=== PATIENT | male | born 1945 | race Caucasian/White ===

== ENCOUNTER 2017-03-30 21:17 | Inpatient (IN) | payer MEDICARE, OTHER ==
[~2017-03-30] VITALS: Ht 175.3 cm; Wt 85.3 kg
[2017-03-30] MEDS ORDERED: ASPI81TA31 PO ×2 (21:40)
[2017-03-30] MEDS ORDERED: ATOR40TA PO (21:40)
[2017-03-30] MEDS ORDERED: LISI-603 PO (21:40)
[2017-03-30] MEDS ORDERED: AMLO5TAB2 PO (21:40)
[2017-03-30] MEDS ORDERED: OMEP20TA5 PO (21:40)
[2017-03-30] MEDS ORDERED: ESCI10TA55 PO (21:40)
[2017-03-30] MEDS ORDERED: CLOP75TA33 PO (21:40)
[2017-03-30] MEDS ORDERED: Z GUARD REMEDY PASTE 57 GM TUBE TOP PRN (21:45)
[2017-03-31 03:57] VITALS: BP 145/86
[2017-03-31 07:48] LABS: EOSINOPHILS # (AUTO) 0.2 K/uL (0.0-0.7); MONOCYTES % (AUTO) 7.4 % (0.0-11.0); NEUTROPHILS # (AUTO) 5.1 K/UL (1.8-8.9)
--- NOTE | 2017-03-31 08:00 | NUR ---
Received patient from shift production supervisor, awake in bed, alert, verbally responsive, coherent, afebrile, not in any form of distress. Environmental safety check done. Assisted to his needs. Call light placed within reach. Reminded to use call light for assistance. Spoke to Yareli to reconcile meds and per MD continue all home meds. Order carried out.
[2017-03-31 08:05] LABS: BASOPHILS % (AUTO) 0.5 % (0.0-2.0); EOSINOPHILS % (AUTO) 2.4 % (0.0-7.0); HEMOGLOBIN 14.9 G/DL (14.0-18.0); LYMPHOCYTES # (AUTO) 1.4 K/UL (0.8-4.8); LYMPHOCYTES % (AUTO) 19.8 % (20.5-51.5); MEAN CORPUSCULAR HEMOGLOBIN 32.4 UUG (27.0-31.0); MEAN CORPUSCULAR HGB CONC 35 g/dL (32.0-37.0); MEAN CORPUSCULAR VOLUME 93.6 FL (82.0-92.0); MONOCYTES # (AUTO) 0.5 K/UL (0.1-1.30); NEUTROPHILS % (AUTO) 69.9 % (38.5-71.5); PLATELET COUNT (AUTO) 198 K/UL (150-450); RED BLOOD CELL COUNT(AUTO) 4.59 MIL/UL (4.7-6.1); WHITE BLOOD COUNT (AUTO) 7.2 K/UL (4.0-11.2)
[2017-03-31 08:28] LABS: MAGNESIUM 2.1 mg/dL (1.8-2.4); PHOSPHOROUS 3.6 mg/dL (2.5-4.9); POTASSIUM 4.2 mmol/L (3.5-5.1)
[2017-03-31 08:49] VITALS: BP 114/62
[2017-03-31] MEDS: ASPIRIN 81 MG TAB.CHEW PO SCH (09:56)
[2017-03-31] MEDS: ESCITALOPRAM OXALATE 10 MG TABLET PO SCH (09:57)
[2017-03-31] MEDS: AMLODIPINE 5 MG TABLET PO SCH (09:59)
[2017-03-31] MEDS: CLOPIDOGREL 75 MG TABLET PO SCH (09:59)
--- NOTE | 2017-03-31 20:00 | NUR ---
RECEIVED PATIENT AWAKE IN BED. A/O X4. DENIES ANY PAIN OR DISCOMFORT. NO RESP. DISTRESS NOTED. VS WNL. CALL LIGHT IN REACH. ALL NEEDS ATTENDED. WILL CONTINUE TO MONITOR AND ASSESS.
[2017-03-31 20:22] VITALS: BP 144/84
[2017-03-31] MEDS: ATORVASTATIN 40 MG TABLET PO SCH (20:49)
--- NOTE | 2017-04-01 06:08 | NUR ---
PATIENT AWAKE IN BED, WATCHING TV. SLEPT WELL. DENIES ANY PAIN OR DISCOMFORT. CALL LIGHT IN REACH. ALL NEEDS ATTENDED. WILL CONTINUE TO MONITOR.
[2017-04-01] MEDS: PANTOPRAZOLE SODIUM 40 MG TABLET.DR PO SCH (06:36)
--- NOTE | 2017-04-01 07:36 | NUR ---
Received patient awake up on his bed, alert, verbally responsive, not in any form of acute distress. He denies any pain or discomfort at this time. Attended to his needs. Call light placed within reach.
[2017-04-01] MEDS: ASPIRIN 81 MG TAB.CHEW PO SCH (08:53)
[2017-04-01] MEDS: LISINOPRIL 20 MG TABLET PO SCH (08:53)
[2017-04-01] MEDS: CLOPIDOGREL 75 MG TABLET PO SCH (08:53)
[2017-04-01] MEDS: AMLODIPINE 5 MG TABLET PO SCH (08:53)
[2017-04-01] MEDS: ESCITALOPRAM OXALATE 10 MG TABLET PO SCH (08:54)
[2017-04-01 09:30] VITALS: BP 131/76
--- NOTE | 2017-04-01 18:02 | NUR ---
Patient participated with PT and OT as scheduled today and tolerated well. He denies any pain or discomfort at this time.
--- NOTE | 2017-04-01 19:55 | NUR ---
patient noted laying in bed ,report received from Amy Love patient is stable
[2017-04-01 20:28] VITALS: BP 115/67
[2017-04-01] MEDS: ATORVASTATIN 40 MG TABLET PO SCH (21:40)
--- NOTE | 2017-04-01 22:40 | NUR ---
RECEIVED PATIENT LAYING IN BED COMFORTABLY. NO ACUTE DISTRESS NOTED. SAFETY INITIATED. CALL LIGHT WITHIN REACH.
[2017-04-02] MEDS: PANTOPRAZOLE SODIUM 40 MG TABLET.DR PO SCH (06:18)
--- NOTE | 2017-04-02 06:31 | NUR ---
NO CHANGES T/O THE NIGHT. SAFETY AND COMFORT MEASURES MAINTAINED T/O SHIFT. CALL LIGHT WITHIN REACH.
[2017-04-02 07:30] VITALS: BP 120/66
--- NOTE | 2017-04-02 08:04 | NUR ---
Patient received from retail shift leader nurse, report given. Patient in stable condition, no signs of acute distress noted, no verbalized needs at this time. VS WNL, no complaints of pain. Safety and fall precautions maintained. Call light within reach.
[2017-04-02] MEDS: ASPIRIN 81 MG TAB.CHEW PO SCH (08:20)
[2017-04-02] MEDS: LISINOPRIL 20 MG TABLET PO SCH (08:20)
[2017-04-02] MEDS: ESCITALOPRAM OXALATE 10 MG TABLET PO SCH (08:20)
[2017-04-02] MEDS: AMLODIPINE 5 MG TABLET PO SCH (08:20)
[2017-04-02] MEDS: CLOPIDOGREL 75 MG TABLET PO SCH (08:20)
[2017-04-02 20:00] VITALS: BP 122/73
[2017-04-02] MEDS: ATORVASTATIN 40 MG TABLET PO SCH (20:39)
[2017-04-03] MEDS: PANTOPRAZOLE SODIUM 40 MG TABLET.DR PO SCH (06:08)
--- NOTE | 2017-04-03 06:41 | NUR ---
PATIENT ASLEEP IN BED. EASILY AROUSABLE. SLEPT WELL THROUGHOUT THE NIGHT. CALL LIGHT IN REACH. ALL NEEDS ATTENDED. WILL CONTINUE TO MONITOR.
[2017-04-03 07:30] VITALS: BP 140/77
[2017-04-03] MEDS: PSYLLIUM SEED PACKET PO SCH (09:00)
[2017-04-03] MEDS: ASPIRIN 81 MG TAB.CHEW PO SCH (09:04)
[2017-04-03] MEDS: CLOPIDOGREL 75 MG TABLET PO SCH (09:05)
[2017-04-03] MEDS: ESCITALOPRAM OXALATE 10 MG TABLET PO SCH (09:05)
[2017-04-03] MEDS: LISINOPRIL 20 MG TABLET PO SCH (09:05)
[2017-04-03] MEDS: AMLODIPINE 5 MG TABLET PO SCH (09:05)
--- NOTE | 2017-04-03 12:13 | NUR ---
Grinding Supervisor SW met with patient at [facility] to assess pt needs and provide support. The patient is a 71 year old male who was admitted for left sided weakness and imbalance. The patient acknowledged his condition and the need for intervention. The patient stated that his emergency contact is his sister Graciela who lives in [place]. Social history: The patient stated that he he was born and raised in the [facility]. The patient completed 1.5 years of [employer] and worked in the [employer] industry. The patient has never been and has no children. The patient denied any history of abuse or domestic violence. The patient denied history of alcohol and drug abuse but did admit to tobacco use and stated that he quit in 1975. The patient stated that he would like to return to his apartment [[id number] [address]]. SW engaged in active listening and provided supportive counseling during the interview to address patient's depressive symptoms related to his decline in functioning. SW will continue to address issues of loss related to recent hospitalization. SW will encourage compliance with rehab goals. SW will be available as needed.
[2017-04-03 20:00] VITALS: BP 126/82
--- NOTE | 2017-04-03 20:00 | NUR ---
PATIENT AWAKE IN BED, ON COMPUTER. A/O X4. DENIES PAIN. DENIES ANY SOB. VS WNL. CALL LIGHT IN REACH. ALL NEEDS ATTENDED. WILL CONTINUE TO MONITOR AND ASSESS.
[2017-04-03] MEDS: ATORVASTATIN 40 MG TABLET PO SCH (20:26)
--- NOTE | 2017-04-04 06:04 | NUR ---
PATIENT ASLEEP IN BED. EASILY AROUSABLE. SLEPT WELL THROUGHOUT THE NIGHT. CALL LIGHT IN REACH. ALL NEEDS ATTENDED. WILL CONTINUE TO MONITOR.
[2017-04-04] MEDS: PANTOPRAZOLE SODIUM 40 MG TABLET.DR PO SCH (06:30)
[2017-04-04 08:20] VITALS: BP 136/81
[2017-04-04] MEDS: LISINOPRIL 20 MG TABLET PO SCH (08:47)
[2017-04-04] MEDS: ASPIRIN 81 MG TAB.CHEW PO SCH (08:47)
[2017-04-04] MEDS: CLOPIDOGREL 75 MG TABLET PO SCH (08:47)
[2017-04-04] MEDS: AMLODIPINE 5 MG TABLET PO SCH (08:47)
[2017-04-04] MEDS: ESCITALOPRAM OXALATE 10 MG TABLET PO SCH (08:47)
[2017-04-04] MEDS: PSYLLIUM SEED PACKET PO SCH (08:48)
--- NOTE | 2017-04-04 14:42 | NUR ---
REHAB TEAM CONFERENCE 04/04/17
--- NOTE | 2017-04-04 19:04 | NUR ---
pt had no complaints during shift. pt tolerated therapy and ambulated on his own. pt states that hes been gaining strength. meds were provided and taken. will endorse new orders to shift supervisor nurse.
--- NOTE | 2017-04-04 19:56 | NUR ---
Received patient awake, oriented and sitting in bed typing on computer. No pain or discomfort reported from patient when asked. Call light within reach. Bed in lowest position for safety. No signs of distress noted. will continue to monitor.
[2017-04-04 20:24] VITALS: BP 132/74
[2017-04-04] MEDS: ATORVASTATIN 40 MG TABLET PO SCH (21:14)
[2017-04-05] MEDS: PANTOPRAZOLE SODIUM 40 MG TABLET.DR PO SCH (07:09)
[2017-04-05 08:00] VITALS: BP 123/74
[2017-04-05] MEDS: CLOPIDOGREL 75 MG TABLET PO SCH (08:51)
[2017-04-05] MEDS: AMLODIPINE 5 MG TABLET PO SCH (08:51)
[2017-04-05] MEDS: LISINOPRIL 20 MG TABLET PO SCH (08:52)
[2017-04-05] MEDS: ESCITALOPRAM OXALATE 10 MG TABLET PO SCH (08:52)
[2017-04-05] MEDS: PSYLLIUM SEED PACKET PO SCH (08:52)
[2017-04-05] MEDS: ASPIRIN 81 MG TAB.CHEW PO SCH (08:52)
--- NOTE | 2017-04-05 19:05 | NUR ---
pt seen walking around the unit and walked out of the unit. pt instructed to not walk out of the unit for safety concerns. pt understood instructions and went back to his room. pt took meds as prescribed and tolerated therapy. pt had improved strength on the left side. no changes in loc. will continue to endorse new orders to wine cellar worker nurse.
--- NOTE | 2017-04-05 20:00 | NUR ---
PATIENT AWAKE IN BED, WATCHING TV. PATIENT IS A/O X4. DENIES ANY PAIN OR DISCOMFORT. NO RESP. DISTRESS NOTED. VSS. CALL LIGHT IN REACH. ALL NEEDS ATTENDED. WILL CONTINUE TO MONITOR AND ASSESS.
[2017-04-05] MEDS: ATORVASTATIN 40 MG TABLET PO SCH (21:00)
[2017-04-05 22:06] VITALS: BP 125/75
[2017-04-06] MEDS: PANTOPRAZOLE SODIUM 40 MG TABLET.DR PO SCH (06:09)
--- NOTE | 2017-04-06 06:22 | NUR ---
PATIENT ASLEEP IN BED. SLEPT WELL THROUGHOUT THE NIGHT. BED ALARM ON FOR SAFETY. CALL LIGHT IN REACH. ALL NEEDS ATTENDED.
[2017-04-06 08:00] VITALS: BP 127/73
[2017-04-06] MEDS: PSYLLIUM SEED PACKET PO SCH (08:30)
[2017-04-06] MEDS: LISINOPRIL 20 MG TABLET PO SCH (08:30)
[2017-04-06] MEDS: ESCITALOPRAM OXALATE 10 MG TABLET PO SCH (08:30)
[2017-04-06] MEDS: AMLODIPINE 5 MG TABLET PO SCH (08:30)
[2017-04-06] MEDS: ASPIRIN 81 MG TAB.CHEW PO SCH (08:30)
[2017-04-06] MEDS: CLOPIDOGREL 75 MG TABLET PO SCH (08:30)
--- NOTE | 2017-04-06 18:48 | NUR ---
pt tolerated therapy and walked around the unit with a steady gait. no signs of weakness throughout the day. pt blood pressure under control. no changes on medications nor therapy regimen. pt states he has no pain. pt requested to have diet changed but educated pt on low salt diet to prevent hypertension. will continue to endorse new orders to cook night nurse.
--- NOTE | 2017-04-06 20:00 | NUR ---
PATIENT AMBULATING IN HALLWAY. A/O X4. STEADY WITH AMBULATION. VS WNL. DENIES ANY PAIN OR DISCOMFORT. NO RESP. DISTRESS NOTED. ALL NEEDS ATTENDED. WILL CONTINUE TO MONITOR AND ASSESS.
[2017-04-06 20:56] VITALS: BP 112/74
[2017-04-06] MEDS: ATORVASTATIN 40 MG TABLET PO SCH (21:02)
[2017-04-07] MEDS: PANTOPRAZOLE SODIUM 40 MG TABLET.DR PO SCH (06:27)
--- NOTE | 2017-04-07 06:33 | NUR ---
PATIENT AWAKE IN BED. DENIES PAIN. SLEPT WELL. CALL LIGHT IN REACH. ALL NEEDS ATTENDED. WILL CONTINUE TO MONITOR AND ASSESS.
[2017-04-07] MEDS: ASPIRIN 81 MG TAB.CHEW PO SCH (08:19)
[2017-04-07] MEDS: AMLODIPINE 5 MG TABLET PO SCH (08:19)
[2017-04-07] MEDS: ESCITALOPRAM OXALATE 10 MG TABLET PO SCH (08:19)
[2017-04-07] MEDS: CLOPIDOGREL 75 MG TABLET PO SCH (08:19)
[2017-04-07] MEDS: LISINOPRIL 20 MG TABLET PO SCH (08:20)
[2017-04-07] MEDS: PSYLLIUM SEED PACKET PO SCH (08:20)
[2017-04-07 08:31] VITALS: BP 118/70
--- NOTE | 2017-04-07 19:42 | NUR ---
pt had no complaints during shift. pt took meds as prescirbed and tolerated therapy throughout the day. pt had walks around the floor with no walker or any assist. pt was monitored during walks by extrusion utility worker. pt instructed not to step out of the unit. vs stable blood pressure below 130. will continue to endorse new orders to hourly shift nurse.
[2017-04-07 20:25] VITALS: BP 126/72
[2017-04-07] MEDS: ATORVASTATIN 40 MG TABLET PO SCH (21:04)
[2017-04-07 21:56] VITALS: BP 126/72
[2017-04-08] MEDS: PANTOPRAZOLE SODIUM 40 MG TABLET.DR PO SCH (06:26)
--- NOTE | 2017-04-08 07:11 | NUR ---
Patient received from assistant shift supervisor, resting comfortably in bed, no signs of acute distress noted. VS WNL, no complaints of pain at this time. No other verbalized needs at this time. Safety and fall precautions maintained, call light within reach.
[2017-04-08 07:44] VITALS: BP 122/70
[2017-04-08] MEDS: LISINOPRIL 20 MG TABLET PO SCH (09:36)
[2017-04-08] MEDS: ASPIRIN 81 MG TAB.CHEW PO SCH (09:36)
[2017-04-08] MEDS: ESCITALOPRAM OXALATE 10 MG TABLET PO SCH (09:36)
[2017-04-08] MEDS: CLOPIDOGREL 75 MG TABLET PO SCH (09:36)
[2017-04-08] MEDS: AMLODIPINE 5 MG TABLET PO SCH (09:36)
[2017-04-08] MEDS: PSYLLIUM SEED PACKET PO SCH (09:40)
--- NOTE | 2017-04-08 19:30 | NUR ---
RECEIVED PATIENT AWAKE, ALERT, AND ORIENTED X3. NO NEURO DEFICITS EXCEPT WITH A BIT OF DECREASED FINE MOTOR CONTROL ON LEFT HAND. PATIENT STATES THAT HIS FINE MOTOR CONTROL HAS IMPROVED SINCE ADMISSION THOUGH. AMBULATES WITHOUT CANE AND WITH STEADY GAIT.. NO C/O PAIN OR DISCOMFORT AT THIS TIME CALL LIGHT WITHIN REACH AAT APPEAR IN NO APPARENT DISTRESAS AT THIS TIME
[2017-04-08] MEDS: ATORVASTATIN 40 MG TABLET PO SCH (20:53)
[2017-04-08 22:07] VITALS: BP 117/71
[2017-04-09] MEDS: PANTOPRAZOLE SODIUM 40 MG TABLET.DR PO SCH (06:24)
[2017-04-09 08:00] VITALS: BP 128/77
[2017-04-09] MEDS: ASPIRIN 81 MG TAB.CHEW PO SCH (08:04)
[2017-04-09] MEDS: PSYLLIUM SEED PACKET PO SCH (08:04)
[2017-04-09] MEDS: CLOPIDOGREL 75 MG TABLET PO SCH (08:05)
[2017-04-09] MEDS: ESCITALOPRAM OXALATE 10 MG TABLET PO SCH (08:05)
[2017-04-09] MEDS: LISINOPRIL 20 MG TABLET PO SCH (08:05)
[2017-04-09] MEDS: AMLODIPINE 5 MG TABLET PO SCH (08:05)
--- NOTE | 2017-04-09 19:01 | NUR ---
pt was ad jag during transfers. pt was developing fine motor skills on the left hand. pt tolerated therapy with ot and pt. pt complained of no pain. no signs of constipation. pt blood pressure controlled with medications. no changes in NIH scale. will continue to endorse new orders to advanced practice provider nurse.
--- NOTE | 2017-04-09 19:20 | NUR ---
Received bedside report from RUBEN Robb. Pt currently in the bathroom, introduce myself as long term care administrator RN, recognized and was responsive appropriately.
[2017-04-09 20:00] VITALS: BP 128/80
--- NOTE | 2017-04-09 20:00 | NUR ---
Assessment done, pt is very much comprehensible, response well and cooperates w/ assessment. Denies any problem/nor any pain. Reported that he's approximately 75% well w/ ambulation, he's doing independently w/ ambulation and all ADL's reminded to call as needed, made sure call lights are w/in reach.
[2017-04-09] MEDS: ATORVASTATIN 40 MG TABLET PO SCH (20:44)
--- NOTE | 2017-04-09 22:00 | NUR ---
Pt is still awake and watching TV. Pt stated that he sleeps late and waiting to get asleep while watching TV. Continue monitor.
--- NOTE | 2017-04-10 | NUR ---
Sound asleep, breathing pattern WNL.Continue monitor.
--- NOTE | 2017-04-10 02:00 | NUR ---
Continue monitor pt. Breathing WNL. Asleep upon rounds.
--- NOTE | 2017-04-10 04:00 | NUR ---
Asleep, easily awakened. Breathing normally.Continue monitor.
--- NOTE | 2017-04-10 06:00 | NUR ---
Remained asleep.Monitor accordingly.
[2017-04-10] MEDS: PANTOPRAZOLE SODIUM 40 MG TABLET.DR PO SCH (06:48)
[2017-04-10 08:03] VITALS: BP 109/57
[2017-04-10] MEDS: ESCITALOPRAM OXALATE 10 MG TABLET PO SCH (08:15)
[2017-04-10] MEDS: CLOPIDOGREL 75 MG TABLET PO SCH (08:15)
[2017-04-10] MEDS: PSYLLIUM SEED PACKET PO SCH (08:15)
[2017-04-10] MEDS: LISINOPRIL 20 MG TABLET PO SCH (08:16)
[2017-04-10] MEDS: ASPIRIN 81 MG TAB.CHEW PO SCH (08:16)
[2017-04-10] MEDS: AMLODIPINE 5 MG TABLET PO SCH (08:16)
--- NOTE | 2017-04-10 19:25 | NUR ---
pt had no new changes on shift. pt shown to have improved mobility and strenght as stated by therapists. bp stable. no loc and NIH changes. pt complaints of no pain. adhered to needs and safety precautions providied. will endorse new orders to lawyers nurse.
[2017-04-10 20:20] VITALS: BP 123/74
[2017-04-10] MEDS: ATORVASTATIN 40 MG TABLET PO SCH (21:24)
[2017-04-11] MEDS: PANTOPRAZOLE SODIUM 40 MG TABLET.DR PO SCH (06:18)
[2017-04-11 08:05] VITALS: BP 119/72
[2017-04-11] MEDS: LISINOPRIL 20 MG TABLET PO SCH (08:26)
[2017-04-11] MEDS: CLOPIDOGREL 75 MG TABLET PO SCH (08:26)
[2017-04-11] MEDS: ESCITALOPRAM OXALATE 10 MG TABLET PO SCH (08:26)
[2017-04-11] MEDS: AMLODIPINE 5 MG TABLET PO SCH (08:27)
[2017-04-11] MEDS: ASPIRIN 81 MG TAB.CHEW PO SCH (08:27)
[2017-04-11] MEDS: PSYLLIUM SEED PACKET PO SCH (08:27)
--- NOTE | 2017-04-11 14:05 | NUR ---
REHAB IDT SUMMAMRY
--- NOTE | 2017-04-11 19:00 | NUR ---
RECEIVED PATIENT IN BED, NO SOB NO CHEST PAIN, NO COMPLAIN OF PAIN, AMBULATE WITH MIN ASSIST. CONT TO MONITOR.
[2017-04-11 20:40] VITALS: BP 120/76
[2017-04-11] MEDS: ATORVASTATIN 40 MG TABLET PO SCH (21:52)
--- NOTE | 2017-04-12 06:01 | NUR ---
PATEINT SLEPT MOST OF THE NIGHT, NO COMPLAIN OF PAIN, NO SOB NO CHEST PAIN NOTED, CONTINENT OF BOWEL AND BLADDER, CALL LIGHT WITHIN REACH.
[2017-04-12] MEDS: PANTOPRAZOLE SODIUM 40 MG TABLET.DR PO SCH (06:44)
--- NOTE | 2017-04-12 08:00 | NUR ---
Received in bed awake, alert/oriented x 3, on RA, no sob noted, resp even and unlabored, v/s stable, continent of bowel and bladder, no c/o pain or discomfort noted.
[2017-04-12 08:06] VITALS: BP 132/78
[2017-04-12] MEDS: PSYLLIUM SEED PACKET PO SCH (09:04)
[2017-04-12] MEDS: ESCITALOPRAM OXALATE 10 MG TABLET PO SCH (09:04)
[2017-04-12] MEDS: ASPIRIN 81 MG TAB.CHEW PO SCH (09:04)
[2017-04-12] MEDS: LISINOPRIL 20 MG TABLET PO SCH (09:05)
[2017-04-12] MEDS: AMLODIPINE 5 MG TABLET PO SCH (09:05)
[2017-04-12] MEDS: CLOPIDOGREL 75 MG TABLET PO SCH (09:05)
--- NOTE | 2017-04-12 14:00 | NUR ---
Patient ambulates with PT with minimal assistance, tolerated well, no distress noted. Medication compliant and cooperative, ate 100% breakfast and lunch. Will continue to monitor for safety and needs.
--- NOTE | 2017-04-12 19:45 | NUR ---
nsg: pt awake, alert, ambulatory, steady. no residual weakness. cont to monitor.
[2017-04-12 19:49] VITALS: BP 138/77
[2017-04-12] MEDS: ATORVASTATIN 40 MG TABLET PO SCH (20:13)
--- NOTE | 2017-04-13 05:15 | NUR ---
nsg: no change in condition. all needs attended.
[2017-04-13] MEDS: PANTOPRAZOLE SODIUM 40 MG TABLET.DR PO SCH (06:11)
[2017-04-13 08:00] VITALS: BP 133/78
--- NOTE | 2017-04-13 08:00 | NUR ---
RECEIVED PATIENT AWAKE, ALERT AND ORIENTED X4. NO COMPLAINTS OF PAIN. NOT IN ANY FORM OF DISTRESS. CALL LIGHT WITHIN REACH. FOR POSSIBLE DISCHARGE TODAY.
[2017-04-13] MEDS: PSYLLIUM SEED PACKET PO SCH (09:00)
[2017-04-13] MEDS: ESCITALOPRAM OXALATE 10 MG TABLET PO SCH (10:04)
[2017-04-13] MEDS: CLOPIDOGREL 75 MG TABLET PO SCH (10:04)
[2017-04-13] MEDS: AMLODIPINE 5 MG TABLET PO SCH (10:04)
[2017-04-13 10:05] VITALS: BP 133/78
[2017-04-13] MEDS: ASPIRIN 81 MG TAB.CHEW PO SCH (10:05)
[2017-04-13] MEDS: LISINOPRIL 20 MG TABLET PO SCH (10:05)
--- NOTE | 2017-04-13 14:00 | NUR ---
PATIENT DISCHARGED IN STABLE CONDITION. VSS. INFORMED PATIENT ABOUT HOME HEALTH. ENCOURAGED TO CONTINUE LOW SALT, LOW FAT DIET. INSTRUCTED TO CONTINUE MEDICATIONS PRESCRIBED. PATIENT DISCHARGED TO HOME, AMBULATORY ACCOMPANIED BY DWIGHT DRAKE.
== END 2017-04-13 14:00 | disposition home health service (06) | DRG 57 ==
PROVIDERS: ADMIT Internal Medicine; ATTEND Internal Medicine
DX: I69.354 Hemiplegia and hemiparesis following cerebral infarction affecting left non-dominant side (principal); I10 Essential (primary) hypertension; I25.10 Atherosclerotic heart disease of native coronary artery without angina pectoris; Z95.5 Presence of coronary angioplasty implant and graft; E78.5 Hyperlipidemia, unspecified; R26.89 Other abnormalities of gait and mobility; Z87.891 Personal history of nicotine dependence; Z82.49 Family history of ischemic heart disease and other diseases of the circulatory system; R26.9 Unspecified abnormalities of gait and mobility; R53.1 Weakness
CPT/HCPCS: 36415; 83735; 84100; 85025; 92523; 97110; 97112; 97116; 97161; 97165; 97530; 97535